=== PATIENT | female | born 1985 | race Caucasian/White ===

== ENCOUNTER → 2016-06-28 | Outpatient (CLI) | payer OTHER | LOC: LABWHC1 06:37 | PROVIDERS: ATTEND Obstetrics & Gynecology | DX: O02.1 Missed abortion (principal) | CPT/HCPCS: 36415; 84702 ==

== ENCOUNTER → 2016-08-11 | Outpatient (CLI) | payer OTHER | END | disposition home or self-care (01) | LOC: LABWHC1 06:39 | PROVIDERS: ATTEND Obstetrics & Gynecology | DX: O02.1 Missed abortion (principal) | CPT/HCPCS: 36415; 84702 ==

== ENCOUNTER → 2016-12-16 | Outpatient (CLI) | payer OTHER ==
[2016-12-16 07:32] LABS: Anisocytosis Slight; Basophils % (A) 1 %; CH 22.2; CHCM 29.4; Eosinophils # (A) 0.2 k/uL (0-0.7); Eosinophils % (A) 5 %; HCT 35.9 % (34.0-46.0); HDW 2.93; HGB 10.5 gm/dL (11.4-16.0); Hypochromasia Marked; Luc # (Auto) 0.06; Luc % (Auto) 2; Lymphocytes # (A) 1.5 k/uL (1.0-4.8); Lymphocytes % (A) 42 %; MCH 22.1 pg (25.0-35.0); MCHC 29.1 g/dL (31.0-37.0); Mean Platelet Volume 8.8; Microcytosis Slight; Monocytes # (A) 0.3 k/uL (0-1.0); Monocytes % (A) 7 %; Neutrophils # (A) 1.6 k/uL (1.3-7.7); Neutrophils % (A) 43 %; RBC 4.73 m/uL (3.80-5.40); WBC 3.7 k/uL (3.8-10.6); WBC (Perox) 3.77
[2016-12-16 08:14] LABS: ALT 42 U/L (9-52); AST 27 U/L (14-36); Alkaline Phosphatase 59 U/L (38-126); Anion Gap 10 mmol/L; Blood Urea Nitrogen 10 mg/dL (7-17); Calcium 9.6 mg/dL (8.4-10.2); Carbon Dioxide 26 mmol/L (22-30); Chloride 104 mmol/L (98-107); Cholesterol 140 mg/dL (<200); Glucose 86 mg/dL (74-99); HDL Cholesterol 89 mg/dL (40-60); Non-African American GFR(MDRD) >60 (>60 ml/min/1.73 sqM); Potassium 4.1 mmol/L (3.5-5.1); Sodium 140 mmol/L (137-145); Total Bilirubin 0.6 mg/dL (0.2-1.3); Total Protein 7.9 g/dL (6.3-8.2)
== END | disposition home or self-care (01) ==
LOC: LABWHC1 07:14
PROVIDERS: ATTEND Family Medicine
DX: Z00.00 Encounter for general adult medical examination without abnormal findings (principal)
CPT/HCPCS: 36415; 80053; 80061; 84443; 85025

== ENCOUNTER → 2017-05-07 | Outpatient (CLI) | payer BC ==
--- NOTE | 2017-05-07 13:49 | US ---
EXAMINATION TYPE: US OB <=14 wks transvag DATE OF EXAM: 05/07/2017 COMPARISON: NONE CLINICAL HISTORY: 31-year-old female O46.91 Bleeding First Trimester,O20.0. Heavy vaginal bleeding, p elvic pain Date of LMP: 03/14/17 Beta HcG (if available): Not available at this time EXAM PERFORMED: Transvaginal (TV) and Transabdominal (TA) FINDINGS: EXAM MEASUREMENTS: GESTATIONAL AGE / DATING Physician Established: Not yet established Dates by LMP: (7 weeks/5 days) EDC: 12/19/17 Dates by First Scan: No previous this is first scan Dates by Current Scan for: No IUP seen at this time MATERNAL ANATOMY Uterus: 10.5 x 3.7 x 4.2cm Right Ovary: 3.0 x 1.7 x 2.4cm Left Ovary: 3.4 x 1.6 x 2.8cm Post CDS / Adnexa: appears wnl Presence of free fluid: no Presence of corpus luteal cyst: not at this time Presence of subchorionic bleed: no GESTATION / SURVEY IUP: No IUP seen at this time NUTRITION REPRESENTATIVE NOTES: No evidence of IUP at this time. Endometrium = 0.5cm. Nabothian cysts noted. IMPRESSION: No intrauterine seen. Correlate with beta hCG values. A value of 2000 is the threshold for visualization of an intrauterine by transvaginal scanning. Currently, differential consider ations include too early to visualize , failed , and nonvisualized ectopic.
[2017-05-07 14:51] LABS: Anisocytosis Slight; HCT 36.3 % (34.0-46.0); HGB 10.5 gm/dL (11.4-16.0); Hypochromasia Marked; MCH 22.2 pg (25.0-35.0); MCHC 28.8 g/dL (31.0-37.0); MCV 77.1 fL (80.0-100.0); Mean Platelet Volume 6.8; Microcytosis Slight; Platelet Count 320 k/uL (150-450); RBC 4.71 m/uL (3.80-5.40); RDW 19.2 % (11.5-15.5); WBC 7.1 k/uL (3.8-10.6)
== END | disposition home or self-care (01) ==
LOC: RADUSWWP 12:25
PROVIDERS: ATTEND Obstetrics & Gynecology
DX: O46.91 Antepartum hemorrhage, unspecified, first trimester (principal)
CPT/HCPCS: 76801; 76817; 84702; 85027; 86850; 86900; 86901

== ENCOUNTER → 2017-05-09 | Outpatient (CLI) | payer BC | END | disposition home or self-care (01) | LOC: LABWHC1 17:20 | PROVIDERS: ATTEND Obstetrics & Gynecology | DX: O20.0 Threatened abortion (principal); Z3A.00 Weeks of gestation of pregnancy not specified | CPT/HCPCS: 36415; 84702 ==

== ENCOUNTER → 2017-05-22 | Outpatient (CLI) | payer BC | END | disposition home or self-care (01) | LOC: LABWHC1 17:09 | PROVIDERS: ATTEND Obstetrics & Gynecology | DX: O02.1 Missed abortion (principal) | CPT/HCPCS: 36415; 84702 ==

== ENCOUNTER → 2017-08-16 | Outpatient (CLI) | payer BC | END | disposition home or self-care (01) | LOC: LABWHC1 07:00 | PROVIDERS: ATTEND Obstetrics & Gynecology | DX: O20.0 Threatened abortion (principal); Z3A.00 Weeks of gestation of pregnancy not specified | CPT/HCPCS: 36415; 84702 ==

== ENCOUNTER → 2017-08-25 | Outpatient (CLI) | payer BC | END | disposition home or self-care (01) | LOC: LABWHC1 10:49 | PROVIDERS: ATTEND Obstetrics & Gynecology | DX: O03.9 Complete or unspecified spontaneous abortion without complication (principal) | CPT/HCPCS: 36415; 84702 ==

== ENCOUNTER → 2017-09-11 | Outpatient (CLI) | payer BC | END | disposition home or self-care (01) | LOC: LABWHC1 06:43 | PROVIDERS: ATTEND Obstetrics & Gynecology | DX: O02.1 Missed abortion (principal); Z3A.00 Weeks of gestation of pregnancy not specified | CPT/HCPCS: 36415; 84702 ==

== ENCOUNTER → 2021-03-12 | Outpatient (CLI) | payer BC ==
[2021-03-12 20:00] LABS: Progesterone 0.2 ng/mL
[2021-03-12 20:02] LABS: Follicle Stimulating Hormone 2.7 mIU/mL
[2021-03-12 23:12] LABS: Luteinizing Hormone 0.4 mIU/mL
[2021-03-12 23:14] LABS: Estradiol <5.0 pg/mL
== END | disposition home or self-care (01) ==
LOC: LABWHC1 10:03
PROVIDERS: ATTEND Obstetrics & Gynecology
DX: Z13.29 Encounter for screening for other suspected endocrine disorder (principal); N93.8 Other specified abnormal uterine and vaginal bleeding
CPT/HCPCS: 36415; 82627; 82670; 83001; 83002; 84144; 84146; 84403; 84439; 84443; 84479

== ENCOUNTER 2022-07-03 05:53 | Inpatient (IN) | payer BC ==
[2022-07-03] MEDS: LACTATED RINGERS 1,000 ML IV SCH ×2 (06:10→14:26)
[2022-07-03] MEDS ORDERED: miSOPROStoL 200 MCG TAB PO PRN (06:21)
[2022-07-03] MEDS ORDERED: OXYTOCIN 30 UNITS/500 ML NS 30 UNIT in SALINE 1 500ML.BAG IV SCH ×2 (06:21→15:40)
[2022-07-03] MEDS ORDERED: CARBOPROST TROMETHAMINE 250 MCG/ML 1 ML AMP IM PRN (06:21)
[2022-07-03] MEDS ORDERED: METHYLERGONOVINE 0.2 MG/ML 1 ML AMP IM PRN (06:21)
[2022-07-03] MEDS ORDERED: AMPICILLIN 2,000 MG in SODIUM CHLORIDE 0.9% 100 ML IVPB STA (06:21)
[2022-07-03] MEDS ORDERED: LIDOCAINE 0.5% (PF) 5 MG/ML (50 ML SDV) SQ PRN (06:21)
[2022-07-03] MEDS ORDERED: TERBUTALINE 1 MG/ML VIAL SQ PRN (06:21)
[2022-07-03] MEDS ORDERED: TRANEXAMIC ACID IN NACL,ISO-OS 1,000 MG in EMPTY BAG 1 BAG IV PRN (06:21)
[2022-07-03] MEDS ORDERED: OXYTOCIN 10 UNIT/ML 1 ML VIAL IM PRN (06:21)
--- NOTE | 2022-07-03 06:39 | P.HPOB ---
History of Present Illness H&P Date: 07/03/22 Chief Complaint: Requested induction of labor This patient is a pleasant 36-year-old 6 para 1 female estimated date of confinement 07/05/2022 estimated gestational age 39-5/7 weeks who presents to labor and delivery for requested induction of labor. Patient's care has been uncomplicated. She is uncomfortable at this time and does request induction of labor. Review of Systems Genitourinary: Reports Menstruation: Reports amenorrhea Past Medical History Past Medical History: No Reported History History of Any Multi-Drug Resistant Organisms: None Reported Past Surgical History: No Surgical Hx Reported Additional Past Surgical History / Comment(s): wisdom teeth Past Anesthesia/Blood Transfusion Reactions: No Reported Reaction, Postoperative Nausea & Vomiting (PONV) Past Psychological History: No Psychological Hx Reported Past Alcohol Use History: None Reported Past Drug Use History: None Reported - Past Family History Father Family Medical History: No Reported History Medications and Allergies Home Medications Medication Instructions Recorded Confirmed Type Pnv,Calcium 72/Iron/Folic Acid 1 tab PO DAILY 01/28/15 07/03/22 History [ Plus Tablet] Allergies Allergy/AdvReac Type Severity Reaction Status Date / Time Milk Containing Products Allergy Diarrhea Verified 07/03/22 06:20 [Dairy] codeine AdvReac Nausea & Verified 07/03/22 06:20 Vomiting Exam Intake and Output 07/02/22 07/02/22 07/03/22 14:59 22:59 06:59 Other: Weight 78.471 kg - OBG Physical Exam Abdomen: bowel sounds normal, no diffuse tenderness, no bruit present, no guarding noted, no hepatomegaly, no splenomegaly, no mass Vulva: both: normal Vagina: normal moisture, no discharge Cervix: no lesion (Cervix is 2-3 cm 50% effaced), no discharge Uterus: enlarged Results labs show she is O positive, rubella immune, RPR is nonreactive, hepatitis B and C were negative, HIV is nonreactive, group B strep was positive, Glucola was 169 with a normal three-hour gtt., most recently group B strep was positive. Assessment and Plan Assessment: This is a pleasant 36-year-old 6 para 1 female 39-5/7 weeks gestation who is admitted to labor and delivery for elective induction of labor. Patient has a history of positive group B strep culture. Plan is antibiotic prophylaxis, induction of labor with Pitocin per protocol, and anticipate vaginal delivery. (1) 39 weeks gestation of Current Visit: Yes Status: Acute Code(s): Z3A.39 - 39 WEEKS GESTATION OF SNOMED Code(s): 52414681 (2) Elective induction of labor planned Current Visit: Yes Status: Acute Code(s): HUK3295 - SNOMED Code(s): 994324593 (3) Group B Streptococcus carrier, antepartum Current Visit: No Status: Acute Code(s): O99.820 - STREPTOCOCCUS B CARRIER STATE COMPLICATING SNOMED Code(s): 6677875100163
[2022-07-03 06:41] LABS: Basophils % (A) 0 %; Eosinophils # (A) 0.1 k/uL (0-0.7); Eosinophils % (A) 2 %; HCT 35.1 % (34.0-46.0); HGB 11.6 gm/dL (11.4-16.0); Lymphocytes # (A) 1.3 k/uL (1.0-4.8); Lymphocytes % (A) 20 %; MCH 26.7 pg (25.0-35.0); MCV 80.9 fL (80.0-100.0); Mean Platelet Volume 7.9; Monocytes # (A) 0.3 k/uL (0-1.0); Monocytes % (A) 5 %; Neutrophils # (A) 4.6 k/uL (1.3-7.7); Neutrophils % (A) 71 %; Platelet Count 213 k/uL (150-450); Poikilocytosis Slight; RBC 4.33 m/uL (3.80-5.40); RDW 14.6 % (11.5-15.5); WBC 6.5 k/uL (3.8-10.6)
[2022-07-03] MEDS: AMPICILLIN 1,000 MG in SODIUM CHLORIDE 0.9% 50 ML IVPB SCH ×2 (10:26→14:34)
[2022-07-03] MEDS ORDERED: BUTORPHANOL 1 MG/ML 1 ML VIAL IV PRN (12:19)
[2022-07-03] MEDS ORDERED: diphenhydrAMINE 50 MG/ML 1 ML VIAL IVP PRN (15:40)
[2022-07-03] MEDS ORDERED: diphenhydrAMINE 25 MG CAP PO PRN (15:40)
[2022-07-03] MEDS ORDERED: HYDROCORTISONE 2.5% RECTAL CREAM 30 GM TUBE RECTAL PRN (15:40)
[2022-07-03] MEDS ORDERED: SIMETHICONE 80 MG CHEWABLE PO PRN (15:40)
[2022-07-03] MEDS ORDERED: ZOLPIDEM 5 MG TAB PO PRN (15:40)
[2022-07-03] MEDS ORDERED: ACETAMINOPHEN TAB 325 MG TAB PO PRN (15:40)
[2022-07-03] MEDS ORDERED: IBUPROFEN 600 MG TAB PO PRN (15:40)
[2022-07-03] MEDS ORDERED: LANOLIN CREAM 5 GM TUBE TOPICAL PRN (15:40)
[2022-07-03] MEDS ORDERED: BENZOCAINE/MENTHOL SPRAY 1 GM/SPRAY AEROSOL TOPICAL PRN (15:40)
[2022-07-03] MEDS ORDERED: bisacodyL 10 MG SUPP RECTAL PRN (15:40)
[2022-07-03] MEDS: SENNOSIDES-DOCUSATE SODIUM 1 EACH TAB PO SCH ×2 (16:38→23:48)
--- NOTE | 2022-07-03 17:57 | P.PROBDLV ---
Vaginal Delivery Note - . Vaginal Delivery Note: Normal spontaneous vaginal delivery viable female infant Apgars 9 and 9 delivery time is 1520 hrs. Please see dictated H&P for intimate details of this patient's admission. Brief summary this is a pleasant 36-year-old 6 para 1 female 39-5/7 weeks' gestation is admitted to labor and delivery for requested induction of labor. On admission patient is 2-3 cm dilated is artificial rupture membranes for clear fluid. Labor is induced with Pitocin per protocol. She requests one dose of Stadol for pain control. Patient quickly progresses and gets to complete. She pushes the head to the perineum the posterior perineum is supported. We have controlled delivery of the infant's head over the intact perineum. Mouth and nares are bulb suctioned. 's presentation is straight occiput anterior presentation. There is no evidence of a nuchal cord. With gentle downward traction and maternal effort we have delivery the anterior shoulder and posterior shoulder and rest this infant's body. This is a vigorous viable female Apgars 9 and 9 delivery time is 1520 hrs. After delivery of the infant the umbilical cord is doubly clamped and cut immediately due to history of jaundice with her first child. Baby is in laid on the mother's abdomen. The placenta is then spontaneously delivered intact. Inspection of perineum shows no lacerations and no repairs were required. All counts are correct 3. There are no complications. Infant and mother stable delivery room.
--- NOTE | 2022-07-04 06:44 | P.PNOBGVD ---
Subjective - Subjective Patient reports: Reports appetite normal, Reports voiding normally, Reports pain well controlled, Reports ambulating normally : doing well Objective - Latest Vital Signs Latest vital signs: Vital Signs Temp Pulse Resp BP Pulse Ox 07/04/22 03:33 98.1 F 86 12 114/77 96 07/04/22 00:00 97.8 F 84 14 118/72 96 07/03/22 20:30 98.5 F 91 14 111/70 96 07/03/22 17:40 91 16 110/86 07/03/22 17:10 94 16 115/60 07/03/22 16:40 92 16 123/70 07/03/22 16:25 95 16 117/68 07/03/22 16:10 90 16 108/65 07/03/22 15:55 92 16 119/66 07/03/22 15:40 97.1 F L 91 16 110/86 Intake and Output 07/03/22 07/03/22 07/04/22 14:59 22:59 06:59 Intake Total 228.900 Output Total 258 Balance -29.100 Intake: Intake, IV Titration 228.900 Amount Oxytocin 30 Units/500 ml 228.900 Ns 30 unit In Saline 1 500ml.bag @ Per Protocol IV .Q0M [facility] Rx#:[id number] Output: Output, Quantitative 258 Blood Loss Other: # Voids 3 1 2 - Exam Lungs: bilateral: normal Chest: Normal S1, Normal S2 Extremities: Present: normal Abdomen: Present: normal appearance, soft Uterus: Present: normal, firm Assessment and Plan Assessment: day #1. Patient is resting without complaints and wishes to go home. Vital signs are stable she's afebrile. Uterus is firm nontender and she is having normal lochia. CBC is pending at time of this dictation. My impression that this is a normal course. Plan is to check CBC and continue routine care. Discharge home later today. (1) 39 weeks gestation of Current Visit: Yes Status: Acute Code(s): Z3A.39 - 39 WEEKS GESTATION OF SNOMED Code(s): 18356537 (2) Elective induction of labor planned Current Visit: Yes Status: Acute Code(s): ATJ3861 - SNOMED Code(s): 626088086 (3) Group B Streptococcus carrier, antepartum Current Visit: No Status: Acute Code(s): O99.820 - STREPTOCOCCUS B CARRIER STATE COMPLICATING SNOMED Code(s): 3188625235088
[2022-07-04 08:08] LABS: Basophils % (A) 0 %; Eosinophils # (A) 0.1 k/uL (0-0.7); Eosinophils % (A) 1 %; HCT 32.7 % (34.0-46.0); HGB 10.9 gm/dL (11.4-16.0); Lymphocytes # (A) 1.1 k/uL (1.0-4.8); Lymphocytes % (A) 10 %; MCH 27.1 pg (25.0-35.0); MCHC 33.2 g/dL (31.0-37.0); MCV 81.6 fL (80.0-100.0); Mean Platelet Volume 8.4; Monocytes # (A) 0.5 k/uL (0-1.0); Monocytes % (A) 4 %; Neutrophils # (A) 9.7 k/uL (1.3-7.7); Neutrophils % (A) 84 %; Platelet Count 233 k/uL (150-450); RBC 4.01 m/uL (3.80-5.40); RDW 14.3 % (11.5-15.5); WBC 11.5 k/uL (3.8-10.6)
[2022-07-04] MEDS: SENNOSIDES-DOCUSATE SODIUM 1 EACH TAB PO SCH (08:24)
[2022-07-04 16:39] VITALS: BP 121/70; PULSE 68; RESP 18; TEMP 98
== END 2022-07-04 17:30 | disposition home or self-care (01) | DRG 807 ==
LOC: 4FBP 05:53
PROVIDERS: ADMIT Obstetrics & Gynecology; ATTEND Obstetrics & Gynecology
PROC: 3E033VJ Introduction of Other Hormone into Peripheral Vein, Percutaneous Approach (ICD-10-PCS; principal; 2022-07-03)
PROC: 10E0XZZ Delivery of Products of Conception, External Approach (ICD-10-PCS; principal; 2022-07-03)
PROC: 10907ZC Drainage of Amniotic Fluid, Therapeutic from Products of Conception, Via Natural or Artificial Opening (ICD-10-PCS; principal; 2022-07-03)
DX: O99.824 Streptococcus B carrier state complicating childbirth (principal); O62.3 Precipitate labor; Z88.5 Allergy status to narcotic agent; Z28.310 Unvaccinated for COVID-19; Z3A.39 39 weeks gestation of pregnancy; Z37.0 Single live birth
CPT/HCPCS: 85025; 86850; 86900; 86901

== ENCOUNTER 2023-05-21 06:17 | Day surgery (SDC) | payer OTHER, BC ==
[2023-05-16 14:41] VITALS: BMI 22.1
[~2023-05-21 06:17] MED LIST: ACETAMINOPHEN TAB 500 MG TAB PO PRN; HEPARIN SODIUM,PORCINE 5,000 UNIT/ML 1 ML VIAL SQ PRN; HYDROmorphone 0.5 MG/0.5 ML SYRINGE IVP PRN; LIDOCAINE 1% (10MG/ML) FOR IV START INTRADERMA PRN; MIDAZOLAM 2 MG/2 ML VIAL IV PRN
[2023-05-21] MEDS: LACTATED RINGERS 1,000 ML IV SCH (06:50)
[2023-05-21] MEDS: DEXAMETHASONE SOD PHOSPHATE 4 MG/ML 1 ML VIAL IV ONE (07:11)
[2023-05-21] MEDS: ONDANSETRON 4 MG/2 ML VIAL IVP ONE (07:12)
--- NOTE | 2023-05-21 07:29 | P.GSHP ---
History of Present Illness H&P Date: 05/21/23 Chief Complaint: Umbilical hernia 37-year-old female here today for repair umbilical hernia. Patient with gradual increase in size over the last year or so. Increasing soreness. History of previous tobacco use. Past Medical History Past Medical History: No Reported History Additional Past Medical History / Comment(s): Seasonal allergies. Hx high Prolactin, was on medications for it but not now. History of Any Multi-Drug Resistant Organisms: None Reported Past Surgical History: No Surgical Hx Reported Additional Past Surgical History / Comment(s): [place] teeth. Past Anesthesia/Blood Transfusion Reactions: Postoperative Nausea & Vomiting (PONV) Past Psychological History: No Psychological Hx Reported Smoking Status: Former smoker Past Alcohol Use History: Rare Additional Past Alcohol Use History / Comment(s): Quit smoking over 10 yrs ago. Past Drug Use History: Marijuana Additional Drug Use History / Comment(s): Marijuana edibles on occasion. Aware no use 24 hrs prior to procedure. - Past Family History Father Family Medical History: No Reported History Medications and Allergies Home Medications Medication Instructions Recorded Confirmed Type Acetaminophen [Tylenol Extra 500 mg PO Q4H PRN 05/16/23 05/21/23 History Strength] Allergies Allergy/AdvReac Type Severity Reaction Status Date / Time Milk Containing Products Allergy Diarrhea Verified 05/21/23 06:51 (Dairy) [Dairy] codeine AdvReac Nausea & Verified 05/21/23 06:51 Vomiting Surgical - Exam Vital Signs Temp Pulse Resp BP Pulse Ox 98.0 F 60 18 138/76 97 05/21/23 06:50 05/21/23 06:50 05/21/23 06:50 05/21/23 06:50 05/21/23 06:50 Physical exam: General: Well-developed, well-nourished HEENT: Normocephalic, sclerae nonicteric Abdomen: Nontender, nondistended, small reducible umbilical hernia with mild diastases recti Extremities: No edema Neuro: Alert and oriented Assessment and Plan (1) Umbilical hernia Narrative/Plan: 37-year-old female with umbilical hernia. Will proceed with open repair with mesh at this time. Risks of bleeding, infection, recurrence, bladder and bowel injury, numbness, nerve injury were discussed with the patient. The patient understands and wishes to proceed. Current Visit: Yes Status: Acute Code(s): K42.9 - UMBILICAL HERNIA WITHOUT OBSTRUCTION OR GANGRENE SNOMED Code(s): 500689961
[2023-05-21] MEDS: BUPIVACAINE (PF) 0.25% 30 ML VIAL SQ ONE (07:30)
[2023-05-21] MEDS ORDERED: LIDOCAINE 1% INJ 10MG/ML (20 ML MDV) ONE (07:30)
[2023-05-21] MEDS ORDERED: fentaNYL (PF) 50 MCG/ML 2 ML AMP ONE (07:30)
[2023-05-21] MEDS ORDERED: MIDAZOLAM 2 MG/2 ML VIAL ONE (07:30)
[2023-05-21] MEDS ORDERED: ROCURONIUM 10 MG/ML (5 ML VIAL) IV ONE (07:30)
[2023-05-21] MEDS ORDERED: GLYCOPYRROLATE 0.2 MG/ML 2 ML VIAL ONE (07:30)
[2023-05-21] MEDS ORDERED: SUCCINYLCHOLINE CHLORIDE 200 MG/10 ML VIAL IV ONE (07:30)
[2023-05-21] MEDS ORDERED: PROPOFOL 10 MG/ML 20 ML VIAL IV ONE (07:30)
[2023-05-21] MEDS ORDERED: NEOSTIGMINE 1 MG/ML 10 ML VIAL ONE (07:30)
[2023-05-21 08:59] VITALS: TEMP 97.8
--- NOTE | 2023-05-21 09:01 | P.OP ---
Date of Procedure: 05/21/23 Procedure(s) Performed: PREOPERATIVE DIAGNOSIS: Reducible umbilical hernia POSTOPERATIVE DIAGNOSIS: Same PROCEDURE: Open repair reducible umbilical hernia with mesh SURGEON: Dr. Lackey ANESTHESIA: General OPERATIVE PROCEDURE DETAILS: The patient was placed in the operating table in the supine position. A curvilinear infraumbilical incision was made using the scalpel. The subcutaneous tissues were dissected bluntly and with cautery. The hernia sac was identified. The umbilical attachments to the fascia were divided using electrocautery. The hernia sac was excised. The defect in the fascia measured 12 x 6 mm. The fat overlying the fascia was dissected. No additional defects were seen. The preperitoneal space was then dissected using blunt dissection and electrocautery. The 4.3 cm ventral ex mesh was placed beneath the fascia and sutured in place using trans-fascial 0 Ethibond sutures. The defect was closed using interrupted vest over pants 0 Ethibond mattress sutures. The subcutaneous tissues were reapproximated using inverted 2-0 & 3-0 Vicryl sutures. The umbilicus was tacked back down to the fascia using a 2-0 Vicryl suture. The skin was closed using 4-0 Monocryl sutures. Skin glue and sterile dressings were then applied. HERNIA CHARACTERISTICS: Length: 6 mm Width: 12 mm Type: Reducible umbilical TYPE OF MESH USED: Ventral X LOCATION OF MESH: [place] FIXATION: 0 Ethibond PREOPERATIVE DISCUSSION ON SMOKING CESSASTION: Yes PREOPERATIVE DISCUSSION ON MORBID OBESITY: Yes PREOPERATIVE DISCUSSION ON APPROPRIATE USE OF NARCOTIC USE: Yes PREOPERATIVE EDUCATION: Multi Modal, Smoking Cessation and Weight Loss with BMI over 35. DISPOSITION: Stable to recovery room
[2023-05-21 09:35] VITALS: RESP 14
[2023-05-21 10:07] VITALS: BP 131/79; PULSE 62
[2023-05-21] MEDS ORDERED: ACETAMINOPHEN TAB 325 MG TAB PO SCH (12:00)
[2023-05-21] MEDS ORDERED: IBUPROFEN 600 MG TAB PO SCH (15:00)
[2023-05-21] MEDS ORDERED: traMADol 50 MG TAB PO SCH (16:00)
== END 2023-05-21 10:22 ==
LOC: OR 06:17
PROVIDERS: ATTEND Surgery
DX: K42.9 Umbilical hernia without obstruction or gangrene (principal); F10.90 Alcohol use, unspecified, uncomplicated; F12.90 Cannabis use, unspecified, uncomplicated; Z87.891 Personal history of nicotine dependence; Z88.5 Allergy status to narcotic agent; Z79.899 Other long term (current) drug therapy
CPT/HCPCS: 49595; 81025; C1781; J2250; J0330; J1100; J2710; J0690; J2405; J2001; J3010; J2704; J0665